=== PATIENT | female | born 1945 | race Caucasian/White ===

== ENCOUNTER 2017-05-17 10:27 | Emergency (ER) | payer MEDICARE, OTHER ==
[~2017-05-17] VITALS: Ht 165.1 cm; Wt 78.2 kg
[2017-05-17 10:30] VITALS: BP 126/47; PULSE 60; RESP 14; O2SAT 97
--- NOTE | 2017-05-17 10:37 | ED.REPORT ---
HPI-General Illness Date of Service May 17, 2017 ED Provider: Peyman Oro MD Pt is a 71 year old female with a history of COPD and HTN who presents to the ED via EMS complaining of dizziness onset 2 days ago. She c/o associated chills , nausea, syncope, weakness, and LOC. The pt reports that she fell 2 days ago, resulting in rib pain. She denies head, abdominal and neck pain. Pt also states that she is "having difficulty with memory" since the GLF. Nursing Notes Stated Complaint: DIZZY/NAUSEA Chief Complaint: General Complaint Nursing Notes Reviewed: Yes Allergies: Coded Allergies: naproxen (Verified Allergy, Severe, hard to breath, 05/17/17) levofloxacin (Verified Allergy, Intermediate, weakness in mussels, 05/17/17 ) acetaminophen (Verified Allergy, Mild, itch, 05/17/17) hydrocodone (Verified Allergy, Mild, itch, 05/17/17) morphine (Verified Allergy, Unknown, vomiting or itching, 05/17/17) General Time Seen by MD: 10:36 Chief Complaint Dizziness Hx Obtained From: Patient, EMS Arrived By: Ambulance Sudden in Onset?: Yes Onset Occurred: 2 days ago Symptom Duration: 1 - 15 minutes Severity: Current: No pain currently Severity: Maximum: No pain Recent Healthcare: No recent doctor visit, No recent hospitalization Similar Sx Previous: No Past Medical History Past Medical History Reports: COPD, Hypertension, Denies: Cancer, Diabetes mellitus, Stroke Past Surgical History Denies Smoking History Current Every Day Smoker Social History Other Social History: Good social support, Ambulatory Status Independent Review of Systems + Rib pain Denies head pain Full Review of Systems Constitutional: Reports: Chills, Weakness - generalized, Denies: Fever GI: Reports: Nausea, Denies: Abdominal pain Musculoskeletal: Denies: Neck pain Neurologic: Reports: Change LOC, Dizziness, Syncope Complete sys rev & neg: except as marked. Physical Exam Vital Signs Vital Signs Date Time Temp Pulse Resp B/P Pulse Ox O2 Delivery O2 Flow Rate FiO2 05/17/17 10:30 36.5 60 14 126/47 97 Room Air Initial VS: Reviewed Head / Eyes: Atraumatic, Normocephalic Neck: Supple, Full range of motion Respiratory: Breath sounds normal, Clear to auscultation, No respiratory distress Cardiovascular: Regular rate & rhythm, Heart sounds normal, Intact distal pulses Abdomen / GI: Soft, Non-tender Extremities: Vascular intact, Neuro intact Skin: Warm, Dry, No cyanosis Neurologic: Alert, Oriented, Nonfocal Psychiatric: Mood/affect normal, Behavior normal General/Constitutional: Awake, Alert Interpretation & Diagnostics Lab Results Interpretation Result Diagram: 05/17/17 1036 05/17/17 1110 Test 05/17/17 10:36 05/17/17 11:10 White Blood Count 8.3th/mm3 (3.8-10.1) Red Blood Count 3.73mil/mm3 (3.90-5.20) Hemoglobin 12.3g/dL (12.0-15.6) Hematocrit 36.2% (35.0-46.0) Mean Corpuscular Volume 97.1fL (81-100) Mean Corpuscular Hemoglobin 33.0pg (27.0-35.0) Mean Corpuscular Hemoglobin Concent 34.0% (32.0-37.0) Red Cell Distribution Width 11.0% (12.3-15.4) Platelet Count 218bil/L (150-400) Neutrophils (%) (Auto) 74.8% (40-74) Lymphocytes (%) (Auto) 14.3% (14-46) Monocytes (%) (Auto) 9.7% (4-12) Eosinophils (%) (Auto) 1.0% (0-5) Basophils (%) (Auto) 0.1% (0-3) Sodium Level 127mEq/L (134-144) Potassium Level 4.4mEq/L (3.5-5.2) Chloride Level 86mEq/L (97-108) Carbon Dioxide Level 27mmol/L (18-29) Blood Urea Nitrogen 9mg/dL (8-27) Creatinine 0.40mg/dL (0.57-1.00) Estimat Glomerular Filtration Rate 226mL/min (>59) Glucose Level 110mg/dL (60-99) Calcium Level 9.3mg/dL (8.5-10.1) Magnesium Level 1.7mg/dL (1.6-2.6) Total Bilirubin 0.4mg/dL (0.0-1.2) Aspartate Amino Transf (AST/SGOT) 23U/L (0-50) Alanine Aminotransferase (ALT/SGPT) 20U/L (0-32) Alkaline Phosphatase 83U/L (25-165) Troponin T 0.010ug/L (0.0-0.011) Total Protein 6.6g/dL (6.4-8.4) Albumin 4.0g/dL (3.4-5.0) ECG Interpretation ECG Interpretation: Sinus rhythm with a rate of 58 Time: 11:09 Interpreted by: ED physician X-Ray Chest Interpretation Chest Xray Interpretation: IMPRESSION: Normal low volume chest Dictated by: Martinez Oro M.D. on 05/17/2017 at 11:06 View: Portable, 1 view Interpretation / Wet Read by: Interpret - Radiologist CT Head Interpretation IMPRESSION: 1. No acute intracranial abnormality. 2. Right frontal scalp soft tissue swelling without evidence of fractures. Dictated by: Ozzy Muhammad M.D. on 05/17/2017 at 11:58 Study: Head CT no contrast Interpretation / Wet Read by: Interpret - Radiologist Re-Eval/Medical Decision Med Decision/Clinical Course Just now, 1:52 PM, I was able to get the patient up to the bathroom she was able to ambulate independently without too much difficulty. She would like to go home. I see no indication for further evaluation or hospitalization at this point. Source of Hx: Old records Time of Eval: 13:39 Re-Evaluation/Progress Note: Pt rechecked. Pt reports weakness. She states that she wants to go home. Spoke with the pt's who heard the pt's fall, and he reports that the pt was already waking when he found her. Informed pt of plan for discharge. Pt understands and agrees with plan for discharge. F/U instructions and RTER warnings given. All questions addressed. Counseled Regarding: Diagnosis, Lab results, Need for follow-up, When/why to return to ED Discharge & Departure Primary Impression: Syncope Syncope type: unspecified Qualified Code: R55 - Syncope and collapse Additional Impressions: Fall from ground level Concussion Encounter type: initial encounter Loss of consciousness presence/duration: with LOC of 30 min or less Qualified Code: S06.0X1A - Concussion with loss of consciousness of 30 minutes or less, initial encounter Disposition: Home Discharge Condition All VS Reviewed: Yes Condition: Stable Patient Instructions: Concussion (ED), Fall Prevention for Older Adults (ED), Syncope in Older Adults (ED) Additional Instructions: Your labs, brain CT, and x-ray were all reassuring. Call your primary care provider tomorrow for a follow-up appointment next week if you symptoms do not improve. Take meclizine as needed for nausea or dizziness. Return to the Emergency Department for any new or concerning symptoms. Referrals: Case Wray DO (PCP) Scribe Attestation Portions of this note were transcribed by Phuong Gonzales. I, Dr. Oro personally performed the history, physical exam and medical decision-making; I reviewed and confirmed the accuracy of the information in the transcribed note. Signed by: Marvin Cartagena, 05/17/17. copies to: Case Wray Kirk H MD May 17, 2017 10:37 Phuong Avila May 17, 2017 10:45
[2017-05-17] MEDS ORDERED: 0.9% Sodium Chloride 1,000 ML IV ONE (10:49)
[2017-05-17] MEDS ORDERED: Ondansetron 2 mg/mL 2 mL Inj IVPUSH ONE (10:50)
[2017-05-17 10:56] LABS: BASOPHILS % (AUTO) 0.1 % (0-3); MONOCYTES % (AUTO) 9.7 % (4-12); Mean Corpuscular Volume 97.1 fL (81-100); NEUTROPHILS % (AUTO) 74.8 % (40-74); Platelet Count 218 bil/L (150-400)
--- NOTE | 2017-05-17 11:09 | DRSVH ---
PROCEDURE: X-RAY CHEST ONE VIEW, PORTABLE ([id number]) INDICATIONS: syncope TECHNIQUE: One view of the chest was acquired. COMPARISON: 05/08/2015 FINDINGS: Surgical changes and devices: None. Lungs and pleura: No pleural effusions or pneumothorax. Diminished inspiration. Lungs are clear. Mediastinum: Mediastinal contours appear normal. Heart size is normal. Bones and chest wall: No suspicious bony lesions. Overlying soft tissues appear unremarkable. IMPRESSION: Normal low volume chest Dictated by: Martinez Oro M.D. on 05/17/2017 at 11:06 Approved by: Martinez Oro M.D. on 05/17/2017 at 11:07
[2017-05-17 11:48] LABS: TROPONIN T 0.01 ug/L (0.0-0.011)
[2017-05-17 11:59] LABS: Magnesium 1.7 mg/dL (1.6-2.6)
--- NOTE | 2017-05-17 12:03 | DRSVH ---
PROCEDURE: CT BRAIN WITHOUT CONTRAST ([id number]) INDICATIONS: syncope, trauma TECHNIQUE: Noncontrast 4.5 mm thick angled axial sections acquired from the foramen magnum to the vertex, with c oronal reformats. COMPARISON: None. FINDINGS: Image quality: There is mild motion artifact slightly limiting evaluation. CSF spaces: Basal cisterns are patent. No extra-axial fluid collections. Ventricles are normal in size and shape. Brain: No intracranial hemorrhage, mass, or mass effect. Henao-white matter interface is preserved. Skull and face: There is mild soft tissue swelling and subcutaneous edema in the right frontal scalp region. Calvarium and visualized facial bones appear intact, without suspicious lesions. Sinuses: Visualized sinuses and mastoids are clear. IMPRESSION: 1. No acute intracranial abnormality. 2. Right frontal scalp soft tissue swelling without evidence of fractures. Dictated by: Ozzy Muhammad M.D. on 05/17/2017 at 11:58 Approved by: Ozzy Muhammad M.D. on 05/17/2017 at 12:01
[2017-05-17] MEDS ORDERED: MECL-114 PO (13:58)
[2017-05-17 14:12] VITALS: BP 139/65; PULSE 70; RESP 15; O2SAT 97
== END 2017-05-17 14:10 | disposition home or self-care (01) ==
LOC: SED 10:27
DX: S06.0X1A Concussion with loss of consciousness of 30 minutes or less, initial encounter (principal); W18.39XA Other fall on same level, initial encounter; Y93.89 Activity, other specified; Y92.89 Other specified places as the place of occurrence of the external cause; Y99.8 Other external cause status; R55 Syncope and collapse; I10 Essential (primary) hypertension; R11.0 Nausea; J44.9 Chronic obstructive pulmonary disease, unspecified; F17.200 Nicotine dependence, unspecified, uncomplicated; Z88.1 Allergy status to other antibiotic agents; Z88.5 Allergy status to narcotic agent; Z88.6 Allergy status to analgesic agent; Z88.8 Allergy status to other drugs, medicaments and biological substances
CPT/HCPCS: 36415; 70450; 71010; 80053; 83735; 84484; 85025; 93005; 96361; 96374; 99285; J2405; J7030